=== PATIENT | female | born 1990 | race Caucasian/White ===

== ENCOUNTER 2016-10-11 02:09 | Emergency (ER) | payer OTHER ==
[~2016-10-11] VITALS: Ht 162.6 cm; Wt 63.5 kg
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
--- NOTE | 2016-10-11 02:31 | NUR ---
BENJAMÍN DAUGHERTY AT BEDSIDE FOR EVAL.
[2016-10-11] MEDS ORDERED: IBUPROFEN 400 MG TABLET ONE (02:32)
[2016-10-11] MEDS ORDERED: ACETAMINOPHEN ES 500 MG TABLET ONE (02:32)
--- NOTE | 2016-10-11 02:43 | NUR ---
XRAY AT BEDSIDE
--- NOTE | 2016-10-11 02:47 | NUR ---
PT GIVEN ICE PACKS FOR RIGHT FOOT PER MD.
[2016-10-11] MEDS ORDERED: IBUPROFEN 400 MG TABLET PO ONE (03:00)
[2016-10-11] MEDS ORDERED: ACETAMINOPHEN 325 MG TABLET PO ONE (03:00)
--- NOTE | 2016-10-11 03:23 | NUR ---
DR. BUTTS SPEAKING TO PT REGARDING POC/ RESULTS
--- NOTE | 2016-10-11 03:36 | NUR ---
Patient discharged to home in stable condition. Written and verbal after care instructions given. Patient verbalizes understanding of instruction. ambulatory with a steady gait with crutches. instructed pt not to drive. pt verbalize understanding.
[2016-10-11 03:38] VITALS: BP 126/72
== END 2016-10-11 03:39 | disposition home or self-care (01) ==
LOC: ER 02:11
DX: S90.31XA Contusion of right foot, initial encounter (principal); M79.671 Pain in right foot; Z88.2 Allergy status to sulfonamides; X58.XXXA Exposure to other specified factors, initial encounter; Y93.01 Activity, walking, marching and hiking; Y92.89 Other specified places as the place of occurrence of the external cause; Y99.9 Unspecified external cause status
CPT/HCPCS: 73630; 99284; A4606; Z7610

== ENCOUNTER 2016-10-24 12:40 | Emergency (ER) | payer OTHER ==
[~2016-10-24] VITALS: Ht 162.6 cm; Wt 63.5 kg
[2016-10-24 12:40] VITALS: BP 124/87
== END 2016-10-24 13:22 | disposition home or self-care (01) ==
LOC: ER 12:42
DX: S92.351A Displaced fracture of fifth metatarsal bone, right foot, initial encounter for closed fracture (principal); Z88.2 Allergy status to sulfonamides; W18.39XA Other fall on same level, initial encounter; Y93.89 Activity, other specified; Y92.89 Other specified places as the place of occurrence of the external cause; Y99.9 Unspecified external cause status
CPT/HCPCS: A4606; Z7610

== ENCOUNTER 2018-06-11 18:37 | Emergency (ER) | payer OTHER ==
[~2018-06-11] VITALS: Ht 162.6 cm; Wt 59.0 kg
[2018-06-11] MEDS ORDERED: ONDANSETRON HCL/PF 4 MG/2 ML VIAL ONE (18:59)
[2018-06-11] MEDS ORDERED: ONDANSETRON HCL/PF 4 MG/2 ML VIAL IVP ONE (19:00)
[2018-06-11] MEDS ORDERED: IV NS 0.9% 1,000 ML IV ONE (19:00)
[2018-06-11] MEDS ORDERED: IV NS 0.9% 1,000 ML BAG IV ONE (19:00)
[2018-06-11 19:04] LABS: BASOPHILS % (AUTO) 0.5 % (0.0-2.0); EOSINOPHILS % (AUTO) 3.9 % (0.0-6.0); HEMATOCRIT 45 % (33-45); HEMOGLOBIN 15.2 g/dL (11.5-14.8); LYMPHOCYTES % (AUTO) 22.4 % (20.0-44.0); MEAN CORPUSCULAR HGB CONC 34 g/dl (31.0-36.0); MEAN CORPUSCULAR VOLUME 98 fL (82-100); MONOCYTES # (AUTO) 0.4 /CMM (0.1-1.30); MONOCYTES % (AUTO) 9.8 % (2.0-12.0); NEUTROPHILS # (AUTO) 2.8 /CMM (1.8-8.9); NEUTROPHILS % (AUTO) 63.4 % (43.0-81.0); PLATELET COUNT (AUTO) 253 /CMM (150-450); RED BLOOD CELL COUNT(AUTO) 4.58 MIL/uL (4.0-5.2); WHITE BLOOD COUNT (AUTO) 4.4 K/uL (4.3-11.0)
[2018-06-11 19:20] LABS: ALBUMIN 3.9 g/dL (3.4-5.0); BILIRUBIN,DIRECT 0.1 mg/dL (0.0-0.2); BILIRUBIN,TOTAL 0.3 mg/dL (0.2-1.0); CALCIUM, SERUM 8.6 mg/dL (8.5-10.1); CREATININE 0.8 mg/dL (0.6-1.3); POTASSIUM 3.6 mmol/L (3.5-5.1); TOTAL PROTEIN, SERUM 7.5 g/dL (6.4-8.2)
--- NOTE | 2018-06-11 19:23 | NUR ---
Nurse Knowledge Exchange with SAHIL Rausch
--- NOTE | 2018-06-11 19:31 | NUR ---
RECEIVED PT CONT' ON IV FLUIDS BOLUS RUNNING WELL TOLERATED, C/O SEVERE PAIN, AM RN ENDORSED THAT MD AWARE, AWAITING ORDERS.
[2018-06-11] MEDS ORDERED: IBUPROFEN 600 MG TABLET PO ONE ×2 (20:00)
--- NOTE | 2018-06-11 20:19 | NUR ---
Patient discharged to home in stable condition, rx given, dr Romeo re-adresses rt side chest pain cleared to go. Written and verbal after care instructions given. Patient verbalizes understanding of instruction.
[2018-06-11 20:23] VITALS: BP 116/76
== END 2018-06-11 20:25 | disposition home or self-care (01) ==
LOC: ER 18:38
DX: R11.10 Vomiting, unspecified (principal); R19.7 Diarrhea, unspecified; Z98.890 Other specified postprocedural states; Z88.2 Allergy status to sulfonamides
CPT/HCPCS: 36415; 80048; 80076; 83690; 84702; 85025; 96361; 96374; 99283; A4606; J2405; J7030

== ENCOUNTER 2023-07-27 16:59 | Emergency (ER) | payer MEDICAID, OTHER ==
[~2023-07-27] VITALS: Ht 162.6 cm; Wt 61.2 kg
[2023-07-27] MEDS ORDERED: METOCLOPRAMIDE HCL 10 MG/2 ML VIAL ONE (17:59)
[2023-07-27] MEDS ORDERED: diphenhydrAMINE HCL 50 MG/ML VIAL ONE (17:59)
[2023-07-27] MEDS ORDERED: FAMOTIDINE/PF INJ 20 MG/2 ML VIAL IV ONE (17:59)
[2023-07-27] MEDS: METOCLOPRAMIDE HCL 10 MG/2 ML VIAL IV ONE (18:09)
[2023-07-27] MEDS: IV NS 0.9% 1,000 ML BAG IV ONE (18:09)
[2023-07-27] MEDS: diphenhydrAMINE HCL 50 MG/ML VIAL IV ONE (18:09)
[2023-07-27] MEDS: FAMOTIDINE/PF INJ 20 MG/2 ML VIAL IV ONE (18:09)
[2023-07-27 18:11] VITALS: TEMP 98.2
[2023-07-27 18:18] LABS: BASOPHILS % (AUTO) 0.7 % (0.0-2.0); EOSINOPHILS # (AUTO) 0.2 K/uL (0.0-0.7); EOSINOPHILS % (AUTO) 3.6 % (0.0-6.0); HEMATOCRIT 43 % (33-45); HEMOGLOBIN 14.3 g/dL (11.5-14.8); LYMPHOCYTES # (AUTO) 1.9 K/uL (0.8-4.8); LYMPHOCYTES % (AUTO) 29.3 % (20.0-44.0); MEAN CORPUSCULAR HEMOGLOBIN 32 PG (26.0-33.0); MEAN CORPUSCULAR HGB CONC 33 g/dl (31.0-36.0); MEAN CORPUSCULAR VOLUME 95 fL (82-100); MONOCYTES # (AUTO) 0.6 K/uL (0.1-1.30); MONOCYTES % (AUTO) 8.9 % (2.0-12.0); NEUTROPHILS # (AUTO) 3.7 K/uL (1.8-8.9); NEUTROPHILS % (AUTO) 57.5 % (43.0-81.0); PLATELET COUNT (AUTO) 320 K/uL (150-450); RED BLOOD CELL COUNT(AUTO) 4.52 MIL/uL (4.0-5.2); RED CELL DISTRIBUTION WIDTH 12.7 % (11.5-15.0); WHITE BLOOD COUNT (AUTO) 6.5 K/uL (4.3-11.0)
[2023-07-27 19:04] LABS: CALCIUM, SERUM 9.5 mg/dL (8.5-10.1); CREATININE 0.7 mg/dL (0.6-1.3); POTASSIUM 4.7 mmol/L (3.5-5.1)
[2023-07-27 19:28] LABS: ALBUMIN 4.3 g/dL (3.4-5.0); BILIRUBIN,DIRECT 0.3 mg/dL (0.0-0.2); BILIRUBIN,TOTAL 1.1 mg/dL (0.2-1.0); TOTAL PROTEIN, SERUM 8.1 g/dL (6.4-8.2)
[2023-07-27] MEDS ORDERED: ONDA4TAB5 PO (19:48)
[2023-07-27 20:05] VITALS: BP 124/80; O2SAT 98
== END 2023-07-27 20:05 | disposition home or self-care (01) ==
LOC: ER 17:11
DX: R11.2 Nausea with vomiting, unspecified (principal); R10.2 Pelvic and perineal pain; Z98.890 Other specified postprocedural states; Z88.2 Allergy status to sulfonamides
CPT/HCPCS: 99284; 96374; 96375; 96361; 85025; 80048; 83690; 80076; 36415; 84702; J1200; J3490; J2765; J7030

== ENCOUNTER 2023-11-19 23:55 | Emergency (ER) | payer OTHER ==
[~2023-11-19] VITALS: Ht 167.6 cm; Wt 61.2 kg
[~2023-11-19 23:55] MED LIST: ONDA4TAB5 PO
[2023-11-20 00:26] VITALS: BP 115/68; TEMP 98.5; O2SAT 98
[2023-11-20 00:49] LABS: BASOPHILS % (AUTO) 0.6 % (0.0-2.0); EOSINOPHILS # (AUTO) 0.3 K/uL (0.0-0.7); EOSINOPHILS % (AUTO) 4.7 % (0.0-6.0); HEMATOCRIT 39 % (33-45); HEMOGLOBIN 13.1 g/dL (11.5-14.8); LYMPHOCYTES # (AUTO) 1.8 K/uL (0.8-4.8); LYMPHOCYTES % (AUTO) 25.7 % (20.0-44.0); MEAN CORPUSCULAR HEMOGLOBIN 32 PG (26.0-33.0); MEAN CORPUSCULAR HGB CONC 33 g/dl (31.0-36.0); MEAN CORPUSCULAR VOLUME 96 fL (82-100); MONOCYTES # (AUTO) 0.7 K/uL (0.1-1.30); MONOCYTES % (AUTO) 9.8 % (2.0-12.0); NEUTROPHILS # (AUTO) 4.2 K/uL (1.8-8.9); NEUTROPHILS % (AUTO) 59.2 % (43.0-81.0); PLATELET COUNT (AUTO) 262 K/uL (150-450); RED CELL DISTRIBUTION WIDTH 12.9 % (11.5-15.0)
[2023-11-20 01:02] LABS: D-DIMER 0.23 mg/L(FEU (0.17-0.50); INR 0.97 (0.91-1.10); PARTIAL THROMBOPLASTIN TIME 27.3 SEC (24.3-34.3); PROTHROMBIN TIME 10.3 SECS (9.2-11.1)
[2023-11-20 01:04] LABS: ALANINE AMINOTRANSFERASE 24 U/L (12-78); ALBUMIN 3.9 g/dL (3.4-5.0); ALKALINE PHOSPHATASE 45 U/L (46-116); ASPARTATE AMINOTRANSFERASE 16 U/L (15-37); BILIRUBIN,DIRECT 0.1 mg/dL (0.0-0.2); BILIRUBIN,TOTAL 0.6 mg/dL (0.2-1.0); CALCIUM, SERUM 8.9 mg/dL (8.5-10.1); CARBON DIOXIDE 25 mmol/L (21-32); CHLORIDE 106 mmol/L (98-107); CREATININE 0.7 mg/dL (0.6-1.3); GLUCOSE 80 mg/dL (74-106); POTASSIUM 4.7 mmol/L (3.5-5.1); SODIUM SERUM 141 mmol/L (136-145); TOTAL PROTEIN, SERUM 7.6 g/dL (6.4-8.2); UREA NITROGEN, BLOOD 13 mg/dL (7-18)
[2023-11-20 01:47] LABS: PREGNANCY TEST URINE QUAL NEGATIVE (NEGATIVE)
== END 2023-11-20 02:17 | disposition home or self-care (01) ==
LOC: ER 23:57
DX: R07.89 Other chest pain (principal); F41.9 Anxiety disorder, unspecified; R10.2 Pelvic and perineal pain; Z79.899 Other long term (current) drug therapy; Z88.2 Allergy status to sulfonamides
CPT/HCPCS: 36415; 71045-TC; 80048-TC; 80076-TC; 84484-TC; 84703-TC; 85025-TC; 85378-TC; 85730-TC

== ENCOUNTER 2024-10-26 15:31 | Emergency (ER) | payer OTHER ==
[~2024-10-26] VITALS: Ht 162.6 cm; Wt 61.2 kg
[2024-10-26] MEDS ORDERED: KETOROLAC TROMETHAMINE 15 MG/ML VIAL ONE (16:19)
[2024-10-26] MEDS ORDERED: ONDANSETRON HCL/PF 4 MG/2 ML VIAL ONE (16:20)
[2024-10-26] MEDS ORDERED: METOCLOPRAMIDE HCL 10 MG/2 ML VIAL ONE (16:20)
[2024-10-26] MEDS ORDERED: ACETAMINOPHEN ES 500 MG TABLET ONE (16:20)
[2024-10-26] MEDS: KETOROLAC TROMETHAMINE 15 MG/ML VIAL IM ONE (16:41)
[2024-10-26] MEDS: IV NS 0.9% 1,000 ML BAG IV ONE (16:42)
[2024-10-26] MEDS: ONDANSETRON HCL/PF 4 MG/2 ML VIAL IVP ONE (16:42)
[2024-10-26] MEDS: METOCLOPRAMIDE HCL 10 MG/2 ML VIAL IV ONE (16:42)
[2024-10-26] MEDS: ACETAMINOPHEN ES 500 MG TABLET PO ONE (16:42)
[2024-10-26] MEDS ORDERED: AMOX875T2 PO (17:03)
[2024-10-26] MEDS ORDERED: ONDA4TAB5 PO (17:31)
[2024-10-26 17:48] VITALS: BP 128/80; TEMP 98.5; O2SAT 99
== END 2024-10-26 17:48 | disposition home or self-care (01) ==
LOC: ER 15:41
DX: J01.80 Other acute sinusitis (principal); R51.9 Headache, unspecified; H53.8 Other visual disturbances; M54.2 Cervicalgia; R53.1 Weakness; Z88.2 Allergy status to sulfonamides
CPT/HCPCS: 99285; 96374; 70450; 96375; 96361; 84703; 96372; J1885; J1200; J2765; J2405; J7030